=== PATIENT | male | born 1955 | race Caucasian/White ===

== ENCOUNTER 2016-09-24 05:43 | Emergency (ER) | payer OTHER ==
[2016-09-24] MEDS ORDERED: NS 1,000 ML IV ONE (06:09)
[2016-09-24] MEDS ORDERED: ZOFRAN IV ONE (06:09)
[2016-09-24] MEDS ORDERED: TORADOL IV ONE (06:09)
--- NOTE | 2016-09-24 07:17 | PROVIDER DOCUMENTATION ---
HPI-General Adult <Omar Martin - Last Filed: 09/24/16 09:43> - History of Present Illness -Gen Adult Nature of Presenting Problems: 61yo WM c/o onset of left flank pain onset about 3-4 hours [employer] and constant. + n/v. Describes the pain as dull and nonradiating. No hx of kidney stone. + hx of cardiac stent about 12 years ago. Denies chest pain currently. No hematuria or dysuria but states has not urinated this am. No rash. Location of Pain/Injury: reports: other (left flank) Pain Radiation: reports: no radiation Quality of Pain: reports: aching, dull Severity: reports: moderate Timing: reports: still present Context/Activities at Onset: reports: sleep Modifying Factors: improves with: nothing Associated Symptoms: reports: nausea, vomiting Similar Symptoms Previously?: No <Vincent aCmpbell - Last Filed: 09/24/16 11:14> - General Chief Complaint: Flank Pain Stated Complaint: LEFT SIDE PAIN Time Seen by Provider: 09/24/16 05:59 Allergies/Adverse Reactions: Patient Allergies Allergy/AdvReac Type Severity Reaction Status Date / Time No Known Allergies Allergy Verified 09/24/16 06:04 Home Medications: Home Medication List Medication Instructions Recorded Confirmed Last Taken Type Carvedilol [Coreg] 25 mg PO BID 09/24/16 09/24/16 09/23/16 History Fenofibrate 40 mg PO 09/24/16 09/23/16 History Naproxen 500 mg PO BID PRN PRN #30 tablet 09/24/16 Unknown Rx Ondansetron HCl [Zofran] 4 mg PO Q6H PRN PRN #14 tablet 09/24/16 Unknown Rx Oxycodone HCl/Acetaminophen 1 each PO Q6H PRN PRN #14 tablet 09/24/16 Unknown Rx [Percocet 7.5-325 mg Tablet] PRAVAstatin [Pravachol] 10 mg PO DAILY 09/24/16 09/24/16 09/23/16 History Tamsulosin [Flomax] 0.4 mg PO DAILY #7 capsule 09/24/16 Unknown Rx Review of Systems - Adult - REVIEW OF SYSTEMS - ADULT Constitutional: denies: fever Eyes: reports: no symptoms reported Cardiovascular: reports: no symptoms reported. denies: chest pain Respiratory: denies: cough, hemoptysis, shortness of breath Gastrointestinal: reports: nausea, vomiting. denies: hematemesis, rectal bleeding Genitourinary: reports: flank pain (left). denies: dysuria, frequency, hematuria, urgency Neurological: reports: no symptoms reported <Vincent Campbell - Last Filed: 09/24/16 11:14> Past History - Adult - PAST MEDICAL HISTORY-ADULT Review of Records: reports: Nursing Assessment Review <Vincent Campbell - Last Filed: 09/24/16 11:14> Physical Exam-General - CONSTITUTIONAL General Appearance: alert, other (appears uncomfortable) - EYES Eyes: PERRL/EOMI. negative: sclera injected - HEAD, EARS, NOSE, MOUTH & THROAT HENMT: normocephalic/atraumatic, moist mucous membranes, pharynx normal - NECK Neck: non-tender, full range of motion, supple - RESPIRATORY Respiratory: chest non-tender, lungs clear, normal breath sounds. negative: wheezing - CARDIOVASCULAR Cardiovascular: normal peripheral pulses, regular rate, rhythm, no edema - GASTROINTESTINAL (ABDOMEN) Abdominal Exam: non tender, soft. negative: distended - GENITOURINARY Male Genitalia: other (mild left CVA tenderness) - MUSCULOSKELETAL Back Exam: CVA tenderness (left). negative: no vertebral tenderness Extremity: normal range of motion, non-tender, normal gait Peripheral Pulses: radial (R): 2+, radial (L): 2+ - SKIN Integumentary: normal color, normal turgor, warm/dry - NEUROLOGIC Neurologic: meat wrapper II-XII nml as tested, grossly normal, no motor/sensory deficits <Vincent Campbell - Last Filed: 09/24/16 11:14> Progress - PLAN OF CARE/RESULTS Progress/Plan/Lab Results: Vital Signs Temp Pulse Resp BP Pulse Ox 09/24/16 05:49 97.7 F 65 20 131/72 100 No Known Allergies Allergy (Verified 09/24/16 06:04) Carvedilol [Coreg] 25 mg PO BID 09/24/16 Fenofibrate 40 mg PO 09/24/16 PRAVAstatin [Pravachol] 10 mg PO DAILY 09/24/16 Laboratory 09/24/16 09/24/16 09/24/16 08:31 08:31 08:31 WBC RBC Hgb Hct MCV MCH MCHC RDW Std Deviation Plt Count MPV Immature Gran % (Auto) Neut % (Auto) Lymph % (Auto) [place] % (Auto) Eos % (Auto) Baso % (Auto) Immature Gran # (Auto) Neut # (Auto) Lymph # (Auto) [place] # (Auto) Eos # (Auto) Baso # (Auto) Sodium 135 L Potassium 4.4 Chloride 102 Carbon Dioxide 22 L Anion Gap 11 BUN 19 Creatinine 1.5 H Estimated GFR/1.73 m2 47 BUN/Creatinine Ratio 13 Glucose 105 H Calculated Osmolality 273 Calcium 8.3 L Total Bilirubin 0.34 AST 25 ALT 24 Alkaline Phosphatase 50 Creatine Kinase 217 H Creatine Kinase Index 2.3 CK-MB (CK-2) 4.94 Troponin T < 0.010 Total Protein 5.8 L Albumin 3.5 Globulin 2.3 Albumin/Globulin Ratio 1.5 Lipase 48 Urine Source Urine Color Urine Turbidity Urine pH Ur Specific [place] Urine Protein Ur Glucose (Stick) Ur Ketones (Stick) Urine Blood Urine Nitrite Urine Bilirubin Urobilinogen Dipstick Urine Leukocytes Urine WBC (Auto) Urine RBC (Auto) U Epithel Cells (Auto) Urine Bacteria (Auto) 09/24/16 03 08:31 07:37 WBC 8.53 RBC 4.36 L Hgb 11.2 L Hct 35.4 L MCV 81.2 MCH 25.7 L MCHC 31.6 L RDW Std Deviation 15.9 H Plt Count 302 MPV 11.7 H Immature Gran % (Auto) 0.0 Neut % (Auto) 85.6 H Lymph % (Auto) 6.7 L [place] % (Auto) 7.5 Eos % (Auto) 0.1 Baso % (Auto) 0.1 Immature Gran # (Auto) 0.00 Neut # (Auto) 7.30 H Lymph # (Auto) 0.57 L Imperial # (Auto) 0.64 H Eos # (Auto) 0.01 Baso # (Auto) 0.01 Sodium Potassium Chloride Carbon Dioxide Anion Gap BUN Creatinine Estimated GFR/1.73 m2 BUN/Creatinine Ratio Glucose Calculated Osmolality Calcium Total Bilirubin AST ALT Alkaline Phosphatase Creatine Kinase Creatine Kinase Index CK-MB (CK-2) Troponin T Total Protein Albumin Globulin Albumin/Globulin Ratio Lipase Urine Source CLEAN CATCH Urine Color YELLOW Urine Turbidity CLEAR Urine pH 5.5 Ur Specific [place] 1.036 Urine Protein 30 A Ur Glucose (Stick) NEGATIVE Ur Ketones (Stick) TRACE A Urine Blood LARGE A Urine Nitrite NEGATIVE Urine Bilirubin NEGATIVE Urobilinogen Dipstick NORMAL Urine Leukocytes NEGATIVE Urine WBC (Auto) <10 Urine RBC (Auto) 10-20 A U Epithel Cells (Auto) <10 Urine Bacteria (Auto) NEGATIVE Orders Category Date Time Status Saline Loc NOW Care 09/24/16 06:09 Active CHEST-1 VIEW [RAD] Stat Exams 09/24/16 06:09 Completed RENAL STONE SEARCH [CT] Stat Exams 09/24/16 08:44 Taken CBC WITH ELECTRONIC DIFF [HEME] Stat Lab 09/24/16 08:31 Completed CK PROFILE [SP CHEM] Stat Lab 09/24/16 08:31 Completed COMPREHENSIVE METABOLIC PANEL [CHEM] Stat Lab 09/24/16 08:31 Completed LIPASE [CHEM] Stat Lab 09/24/16 08:31 Completed TROPONIN T Stat Lab 09/24/16 08:31 Completed UA NIMS W/REFLEX CULT [URINALYSIS] Stat Lab 09/24/16 07:37 Completed 0.9% Sodium Chloride Inj [Ns] 1,000 ml Med 09/24/16 06:09 Discontinued IV 999 mls/hr Ketorolac [Toradol] Med 09/24/16 06:09 Discontinued 30 mg IV NOW ONE Ondansetron [Zofran] Med 09/24/16 06:09 Discontinued 4 mg IV NOW ONE Tamsulosin [Flomax] Med 09/24/16 09:43 Once 0.4 mg PO NOW ONE EKG [EKG] Stat Ther 09/24/16 06:[address] Renal stone Search Report 1) 4mm obstructing L proximal ureter stone 2)mild L hydronephrosis 3)moderate,nonspecific mesenteric panniculitis and adenopathy patient will be d/c home with rx, f/u with PCP( for anemia) f/u with urology for stones, pt understood instructions and results, pt was clinically stable , pt told that he has had low blood count before and had colonoscopy - XRAY 1 XRAY Study: Chest Impression: Normal XRAY Interpretation: negative - CT/MRI 1 CT Study: Renal Stone Impression: Abnormal CT Results: see progress note for complete report <Omar Martin - Last Filed: 09/24/16 09:43> - PLAN OF CARE/RESULTS Progress/Plan/Lab Results: Note - Pt was noted to be anemic. He denies any hx of melena or hematochezia. He states that he has been told that he has been anemic in the past. He states that he has had a normal colonoscopy. He is comfortable with f/ u with Dr Benton for recheck of H/H. He is referred to urology for further evaluation. He agrees to return to the ED if any worsening of his condition. <Vincent Campbell - Last Filed: 09/24/16 11:14> Departure - Departure Time of Disposition Order: 09:46 Certified Medical Emergency: Emergent <Omar Martin - Last Filed: 09/24/16 09:43> <Vincent Campbell - Last Filed: 09/24/16 11:14> - Departure DIAGNOSIS: Ureteral stone with hydronephrosis Anemia Qualifiers: Anemia type: other cause Other causes of anemia: other cause, not classified Qualified Code(s): D64.89 - Other specified anemias Disposition: HOME 01 Condition: Stable Additional Instructions: f/u with for repeat CBC f/u with for kidney stone push fluids ED Follow Up Instructions: You have been treated by a care provider in the Emergency Department. These instructions are being provided to you so you can have an understanding of how to care for yourself upon discharge. Upon discharge from the Emergency Department, you are responsible for making arrangements for follow-up care by a physician of your choice. Take all prescribed medications as directed. Return to the Emergency Department immediately for any new or worsening symptoms. You may call the Physician Referral phone number at [phone] to obtain a list of Physicians who are taking new patients. Prescriptions: Tamsulosin [Flomax] 0.4 mg PO DAILY #7 capsule Naproxen 500 mg PO BID PRN PRN #30 tablet PRN Reason: Pain Oxycodone HCl/Acetaminophen [Percocet 7.5-325 mg Tablet] 1 each PO Q6H PRN PRN # 14 tablet PRN Reason: Pain Ondansetron HCl [Zofran] 4 mg PO Q6H PRN PRN #14 tablet PRN Reason: Nausea And Vomiting Referrals: Jayesh Benton MD [Primary Care Provider] - Call for Appoint. 1-2days Lui Blanca DO [STAFF PHYSICIAN] - Call for Appoint. 1-2days Instructions: Kidney Stones, [id number], Anemia, Nonspecific, Hydronephrosis Attestation - Scribe Verification/Attestation Scribe:: Omar Martin Acting as Scribe for:: Vincent Campbell Scribe documention review:: This chart was documented by a scribe and accurately reflects the service the provider performed and the decisions made by the provider. <Omar Martin - Last Filed: 09/24/16 09:43> Physician Attestation - Physician Attestation I, the provider, attest to the following statement:: Vincent Campbell Physician documentation Attestation:: This documentation recorded by the scribe accurately reflects the service I personally performed and the decisions made by me. <Omar Martin - Last Filed: 09/24/16 09:43>
--- NOTE | 2016-09-24 07:32 | EKG Report ---
Test Performed on : 09/24/2016 06:27:53 AM Test Reason : Chest Pain Blood Pressure : / mmHG Vent. Rate : 057 BPM Atrial Rate : 057 BPM P-R Int : 150 ms QRS Dur : 084 ms QT Int : 414 ms P-R-T Axes : 038 000 018 degrees QTc Int : 402 ms Sinus bradycardia. Lateral infarct , age undetermined Inferior infarct , age undetermined Abnormal ECG No previous ECGs available Unconfirmed Result
[2016-09-24 07:46] LABS: URINE CULTURE NEEDED? NO; URINE MICRO REVIEW NEEDED? NO; URINE SOURCE CLEAN CATCH
--- NOTE | 2016-09-24 07:47 | Diag Imaging Result Document ---
PROCEDURE NAME: CHEST-1 VIEW - 09/24/2016 AP PORTABLE CHEST AT 0620 HOURS: FINDINGS: There is no evidence of acute cardiac or pulmonary disease. The inspiration is somewhat suboptimal. IMPRESSION: No acute disease.
[2016-09-24 07:59] LABS: BILIRUBIN URINE NEGATIVE (NEGATIVE); BLOOD URINE LARGE (NEGATIVE); COLOR YELLOW; GLUCOSE URINE NEGATIVE (NEGATIVE); LEUKOCYTES URINE NEGATIVE (NEGATIVE); NITRITE URINE NEGATIVE (NEGATIVE); PH URINE 5.5; PROTEIN URINE 30 mg/dL (NEGATIVE); SP GRAVITY URINE 1.036; TURBIDITY URINE CLEAR (CLEAR); UROBILINOGEN URINE NORMAL (NORMAL)
[2016-09-24 08:01] LABS: UR EPITHELIAL CELLS <10 /HPF (<10); URINE BACTERIA NEGATIVE /HPF; URINE WBC <10 /HPF (<10)
[2016-09-24 08:46] LABS: BASO% 0.1 % (0.0-0.8); EOS# 0.01 X1000 (0.0-0.7); EOS% 0.1 % (0.0-10.0); HEMATOCRIT 35.4 % (42.0-52.0); HEMOGLOBIN 11.2 g/dL (14.0-18.0); LYMPH# 0.57 X1000 (1.2-3.4); LYMPH% 6.7 % (20.5-51.1); MANUAL DIFF NEEDED? NO; MCH 25.7 PG (27-31); MCHC 31.6 g/dL (33-37); MCV 81.2 FL (81-99); MONO# 0.64 X1000 (0.11-0.59); MONO% 7.5 % (1.7-9.3); MPV 11.7 FL (7.4-10.4); NEUT% 85.6 % (42.2-75.2); PLT 302 X1000 (130-400); RBC 4.36 XMIL (4.7-6.1)
[2016-09-24 08:55] LABS: ALBUMIN 3.5 g/dL (3.5-5.0); CALCIUM 8.3 mg/dL (8.8-10.2); POTASSIUM 4.4 mmol/L (3.5-5.1); TOTAL BILIRUBIN 0.34 mg/dL (0.20-1.00); TOTAL PROTEIN 5.8 g/dL (6.3-8.3)
--- NOTE | 2016-09-24 09:04 | ED EKG INTERP ---
EKG Interpretation - EKG Time of EKG reading by physician:: 06:30 EKG Read and Signed by:: Vincent Campbell EKG Interpretation (*Must complete 3 of following elements*): Abnormal Rate: 57 Rhythm: Sinus Bradycardia [place]: normal QRS: normal [place] Interval: normal ST Wave: non-specific ST changes Attestation - Scribe Verification/Attestation Scribe:: Omar Martin Acting as Scribe for:: Vincent Campbell Scribe documention review:: This chart was documented by a scribe and accurately reflects the service the provider performed and the decisions made by the provider. Physician Attestation - Physician Attestation I, the provider, attest to the following statement:: Vincent Campbell Physician documentation Attestation:: This documentation recorded by the scribe accurately reflects the service I personally performed and the decisions made by me.
[2016-09-24 09:17] LABS: CK INDEX 2.3 (0.0-2.5); CK-MB 4.94 ng/mL (0.0-5.0)
[2016-09-24] MEDS ORDERED: FLOMAX PO ONE (09:43)
--- NOTE | 2016-09-24 09:46 | Diag Imaging Result Document ---
PROCEDURE NAME: RENAL STONE SEARCH - 09/24/2016 CT ABDOMEN AND PELVIS: COMPARISON: None. FINDINGS: There is a slightly obstructing left proximal ureter stone. This measures about 4.3 mm. This is at the level of L4. There is mild left hydronephrosis. There is a small left renal stone measuring about 4 mm. No right-sided stones. There is mild constipation. There are numerous moderately enlarged mesenteric lymph nodes at the root of the mesentery. The mesentery also demonstrates nonspecific edema. Urinary bladder, prostate, and rectum are normal. The lung bases are grossly clear, and the heart size is normal. Mild degenerative changes of the thoracolumbar spine. No acute bony lesions. IMPRESSION: 1. Obstructing left proximal ureter stone. Left renal stone. 2. Nonspecific mesenteric edema and mesenteric lymphadenopathy. This may represent mesenteric panniculitis.
[2016-09-24 10:04] VITALS: BP 130/74
== END 2016-09-24 10:03 | disposition home or self-care (01) ==
LOC: ED 05:43
DX: N13.2 Hydronephrosis with renal and ureteral calculous obstruction (principal); D64.89 Other specified anemias; R10.9 Unspecified abdominal pain; R11.2 Nausea with vomiting, unspecified; R94.31 Abnormal electrocardiogram [ECG] [EKG]; Z79.899 Other long term (current) drug therapy
CPT/HCPCS: 71010; 74176; 80053; 81001; 82550; 82553; 83690; 84484; 85025; 93005; J1885; J2405; J7030

== ENCOUNTER 2019-01-21 10:13 | Inpatient (IN) ==
[2019-01-21] MEDS ORDERED: ZOFRAN IV PRN (10:21)
[2019-01-21] MEDS ORDERED: SODIUM CHLORIDE 0.9% INJ SCH (10:30)
[2019-01-21] MEDS: PEPCID IV SCH ×2 (11:24→23:09)
[2019-01-21] MEDS: NS 1,000 ML IV SCH ×3 (11:25→21:09)
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
[2019-01-22] MEDS: NS 1,000 ML IV SCH ×4 (02:18→18:15)
[2019-01-22 07:40] LABS: BASO# 0.02 X1000 (0.0-0.2); BASO% 0.3 % (0.0-0.8); EOS# 0.03 X1000 (0.0-0.7); EOS% 0.5 % (0.0-10.0); HEMATOCRIT 36.9 % (42.0-52.0); HEMOGLOBIN 12.1 g/dL (14.0-18.0); IMM GRAN# 0.02 X1000 (0.0-0.04); IMM GRAN% 0.3 % (0.0-0.5); LYMPH# 1.16 X1000 (1.2-3.4); LYMPH% 18.2 % (20.5-51.1); MCH 25.6 PG (27-31); MCHC 32.8 g/dL (33-37); MCV 78.2 FL (81-99); MONO# 0.67 X1000 (0.11-0.59); MONO% 10.5 % (1.7-9.3); NEUT# 4.46 X1000 (1.4-6.5); NEUT% 70.2 % (42.2-75.2); PLT 316 X1000 (130-400); RBC 4.72 XMIL (4.7-6.1); RDW 15.6 % (11.5-14.5); WBC 6.36 X1000 (4.8-10.8)
[2019-01-22 08:02] LABS: ALB/GLOB RATIO 1.3; ALBUMIN 3.2 g/dL (3.5-5.0); CALCIUM 7.3 mg/dL (8.8-10.2); CREATININE 2.9 mg/dL (0.7-1.2); POTASSIUM 3.4 mmol/L (3.5-5.1); TOTAL BILIRUBIN 0.37 mg/dL (0.20-1.00); TOTAL PROTEIN 5.6 g/dL (6.3-8.3)
[2019-01-22 10:04] LABS: FREE T4 1.08 ng/dL (0.93-1.70); TSH 14.57 uIUmL (0.27-4.20)
--- NOTE | 2019-01-22 10:21 | PROGRESS NOTE ---
DATE: 01/22/2019 SUBJECTIVE: A 63-year-old, white gentleman, admitted with abdominal pain, nausea, vomiting, diarrhea, weakness, poor oral intake going on since last 3 to 4 days. The patient was feeling weak, at times dizzy. The patient was seen by PMD in his office. His blood pressure was low. BUN was 60, creatinine 4.5. The patient was admitted. Known case of hypertension, hyperlipidemia, hypothyroidism, coronary artery disease, vitamin B12 deficiency. The patient denied any chest pain. No blood or mucus in the stool. No dysuria or hematuria. Admission history and physical noted. OBJECTIVE: Vital Signs: Blood pressure 107/72, pulse 80, respirations 20, temperature 98.1 degrees. Skin: No rash or petechiae. Neck: Supple. No JVD. Lungs: Bibasilar crepitations. Heart: S1 and S2 heard. Abdomen: Soft, globular. Bowel sounds present. Central Nervous System: Alert, awake, able to move all 4 limbs. LABORATORY DATA: Done today, carbon dioxide 15, BUN 44, creatinine 2.9, potassium 3.4. Hemoglobin 12.1, hematocrit 36.9. CONSIDERATION: 1. Gastroenteritis. 2. Acute kidney injury. 3. Hypertension but blood pressure is low-normal. 4. Stool workup is pending. The patient claims he still has watery stool. 5. History of hypothyroidism, on Synthroid. 6. Hyperlipidemia, on Pravachol. PLAN: Plenty of liquids orally. IV hydration. Continue current treatment. Check appropriate labs. Overall plan discussed with the patient and he is in agreement. cc: MD Sheng Avilez MD
[2019-01-22] MEDS: PEPCID IV SCH ×2 (11:17→22:55)
[2019-01-22] MEDS: KLOR-CON PO SCH (21:06)
[2019-01-23] MEDS: NS 1,000 ML IV SCH ×3 (05:43→17:53)
[2019-01-23] MEDS ORDERED: MAGNESIUM SULFATE 2 GM/S.W.I. 2 GM/50 ML IVPB IV ONE (07:39)
[2019-01-23 07:47] LABS: BASO# 0.02 X1000 (0.0-0.2); BASO% 0.4 % (0.0-0.8); EOS# 0.06 X1000 (0.0-0.7); EOS% 1.2 % (0.0-10.0); HEMATOCRIT 36.8 % (42.0-52.0); HEMOGLOBIN 11.9 g/dL (14.0-18.0); LYMPH# 0.88 X1000 (1.2-3.4); LYMPH% 17.7 % (20.5-51.1); MCH 25.4 PG (27-31); MCHC 32.3 g/dL (33-37); MCV 78.5 FL (81-99); MPV 12.1 FL (7.4-10.4); NEUT# 3.62 X1000 (1.4-6.5); NEUT% 72.7 % (42.2-75.2); PLT 345 X1000 (130-400); RBC 4.69 XMIL (4.7-6.1); RDW 15.8 % (11.5-14.5); WBC 4.98 X1000 (4.8-10.8)
--- NOTE | 2019-01-23 08:02 | PROGRESS NOTE ---
DATE: 01/23/2019 SUBJECTIVE: Mr. Dinero is feeling better. Diarrhea improving, though patient still has watery stool. The patient feels hungry. The patient is on a clear liquid diet. I am going to advance to a full liquid, to soft diet as tolerable. No high-grade fever or chills. No typical chest pain or palpitations. Denied any nausea. No dysuria. OBJECTIVE: Vital Signs: Blood pressure 116/69, pulse 69, respirations 18, temperature 97.4 degrees. Neck: Supple. No JVD. Lungs: Bilateral good air entry present. CVS: S1 and S2 heard. Abdomen: Soft. No distention. Mild epigastric tenderness. No guarding or rigidity. Extremities: No cyanosis, clubbing. No acute DVT. CODING QUALITY ANALYST: Alert, awake. Able to move all 4 limbs. CONSIDERATION: 1. Patient admitted with gastroenteritis, acute kidney injury, and dehydration. The patient was on a clear liquid diet. 2. The patient does have a history of hypertension. Patient was on Coreg. His blood pressure without medicines is still normal. 3. Does have history of hypothyroidism. TSH and free T4 done yesterday, results reviewed. 4. Hyperlipidemia. 5. Patient had hypokalemia. I am supplementing potassium. PLAN: Plan is to gradually advance diet and watch patient. Recheck blood work. If clinical condition permits and patient tolerates food okay, we will plan discharging patient home soon. Patient's magnesium was low yesterday. I am going to supplement magnesium. cc: MD Sheng Avilez MD
[2019-01-23 08:09] LABS: ALB/GLOB RATIO 1.2; ALBUMIN 3.2 g/dL (3.5-5.0); CALCIUM 7.9 mg/dL (8.8-10.2); POTASSIUM 3.4 mmol/L (3.5-5.1); TOTAL BILIRUBIN 0.34 mg/dL (0.20-1.00); TOTAL PROTEIN 5.9 g/dL (6.3-8.3)
[2019-01-23] MEDS: KLOR-CON PO SCH ×2 (08:22→21:51)
[2019-01-23] MEDS: PEPCID IV SCH ×2 (11:29→21:51)
[2019-01-23] MEDS: ASPIRIN PO SCH (11:30)
[2019-01-24 07:00] LABS: BASO# 0.02 X1000 (0.0-0.2); BASO% 0.4 % (0.0-0.8); EOS# 0.07 X1000 (0.0-0.7); EOS% 1.4 % (0.0-10.0); HEMATOCRIT 39.2 % (42.0-52.0); HEMOGLOBIN 12.6 g/dL (14.0-18.0); LYMPH# 0.82 X1000 (1.2-3.4); LYMPH% 16.3 % (20.5-51.1); MCH 25.4 PG (27-31); MCHC 32.1 g/dL (33-37); MCV 78.9 FL (81-99); MONO# 0.46 X1000 (0.11-0.59); MONO% 9.1 % (1.7-9.3); NEUT# 3.67 X1000 (1.4-6.5); NEUT% 72.8 % (42.2-75.2); PLT 371 X1000 (130-400); RBC 4.97 XMIL (4.7-6.1); RDW 16.3 % (11.5-14.5); WBC 5.04 X1000 (4.8-10.8)
[2019-01-24 07:30] LABS: CREATININE 1.7 mg/dL (0.7-1.2); POTASSIUM 3.9 mmol/L (3.5-5.1)
[2019-01-24 07:31] LABS: ALB/GLOB RATIO 1.3; ALBUMIN 3.5 g/dL (3.5-5.0); TOTAL BILIRUBIN 0.37 mg/dL (0.20-1.00); TOTAL PROTEIN 6.1 g/dL (6.3-8.3)
[2019-01-24] MEDS ORDERED: CULTURELLE PO SCH (09:00)
[2019-01-24] MEDS: NS 1,000 ML IV SCH ×2 (09:12→09:13)
[2019-01-24] MEDS: KLOR-CON PO SCH (09:13)
[2019-01-24] MEDS: ASPIRIN PO SCH (09:13)
[2019-01-24 11:20] VITALS: BP 114/98
[2019-01-24] MEDS: PEPCID IV SCH (11:49)
--- NOTE | 2019-01-26 05:35 | DISCHARGE SUMMARY ---
ADMISSION DATE: 01/22/2019 DISCHARGE DATE: 01/24/2019 DISCHARGING DIAGNOSIS: Acute kidney injury due to prerenal azotemia and dehydration from gastroenteritis. SECONDARY DIAGNOSES: 1. Coronary artery disease. 2. Hypertension. 3. Hyperlipidemia. 4. Hypothyroidism. 5. Vitamin B12 deficiency. BRIEF HISTORY: Please see the H and P that was done on 01/21/2019. In brief, he is a 63-year-old white male admitted to the hospital after having gastroenteritis symptoms, nausea, vomiting and diarrhea for the last few days associated with low blood pressure, and acute kidney injury. HOSPITAL COURSE: Patient was given IV fluids 200 mL an hour until the blood pressure was above 100. Subsequently, he was started on 125 mL an hour. He has been tolerating the diet very well. He has less bowel movements. Follow up hydration. Creatinine came down to 1.7. LABORATORY: CBC: White cell count 5.0, hematocrit 39.4, and platelet count 371,000. Sodium 139, potassium 3.9, chloride 1.3, BUN 23, and creatinine 1.7. Liver function tests were normal. TSH is 14, free T4 1.0. Stool white cells are few. Occult blood is positive. Stool cultures are negative. DISCHARGE INSTRUCTIONS: After stopping the fluids, he is no longer orthostatic. The patient is discharged home in stable condition with the following instructions. Soft diet and hold the blood pressure medications. Continue on Synthroid 175 mcg daily, fenofibrate 40 daily, and pravastatin 10 daily. Follow up in my office next week and repeat the CBC, BMP, and also probiotics as discussed. cc: Sheng Benton MD
== END 2019-01-24 14:58 | disposition home or self-care (01) | DRG 641 ==
LOC: DIRADM 10:13 → INTOOBSV 10:13 → 3N 10:49
PROVIDERS: ADMIT Internal Medicine; ATTEND Internal Medicine
CPT/HCPCS: 80053; 82270; 83735; 84439; 84443; 85025; 87045; 87046; 87205; 89055; A9270; J3475; J7030; S0028